=== PATIENT | female | born 1975 | race Caucasian/White ===

== ENCOUNTER 2021-10-30 03:38 | Emergency (ER) | payer OTHER ==
[2021-10-30] MEDS ORDERED: Sodium Chloride 0.9% 1,000 ML IV ONE (04:31)
[2021-10-30 04:47] LABS: ANION GAP 13.1 mEq/L (7-13); CHLORIDE,CL 97 mmol/L (98-107); SODIUM,NA 138 mmol/L (136-145)
[2021-10-30 04:48] LABS: ACETAMINOPHEN 0 ug/mL (10-30 (Therapeutic)); ESTIMATED GFR 84 mL/min (>=60)
[2021-10-30 05:16] LABS: CORONAVIRUS COVID-19 NAA POSITIVE (NEGATIVE)
[2021-10-30] MEDS ORDERED: Ondansetron 4 MG/2 ML SDV IVPUSH ONE (05:24)
== END 2021-10-30 06:06 | disposition home or self-care (01) ==
LOC: DL.ED 03:38
DX: U07.1 COVID-19 (principal); Z88.8 Allergy status to other drugs, medicaments and biological substances; Z86.16 Personal history of COVID-19
CPT/HCPCS: 0240U; 36415; 80053; 80143; 80179; 80307; 81001; 82140; 82150; 83605; 83690; 83735; 85025; 87040; 96361; 96374; 99284; J2405; J7030; 99283